=== PATIENT | male | born 1960 | race Caucasian/White ===

== ENCOUNTER 2018-12-12 18:15 | Emergency (ER) | payer SELFPAY ==
[~2018-12-12] VITALS: Ht 167.6 cm; Wt 77.1 kg
[~2018-12-12 18:15] MED LIST: CYCLOBENZAPRINE10 MG PO; Motrin,Rufen800 MG PO
[2018-12-12] MEDS ORDERED: AUGMENTIN 875875 MG PO (18:43)
== END 2018-12-12 20:09 | disposition home or self-care (01) ==
LOC: ED 18:15
DX: S61.451A Open bite of right hand, initial encounter (principal); Z88.6 Allergy status to analgesic agent; Z79.899 Other long term (current) drug therapy; W54.0XXA Bitten by dog, initial encounter; Y93.89 Activity, other specified; Y92.098 Other place in other non-institutional residence as the place of occurrence of the external cause; Y99.8 Other external cause status

== ENCOUNTER 2022-01-15 12:29 | Emergency (ER) | payer OTHER ==
[~2022-01-15] VITALS: Wt 64.0 kg
[~2022-01-15 12:29] MED LIST changes: +AUGMENTIN 875875 MG PO
[2022-01-15 13:12] LABS: HEMATOCRIT 36.2 % (42.0-52.0); MANUAL DIFF REFLEX YES; MEAN CELL VOLUME 85.6 fl (80.0-94.0); MEAN CORPUSCULAR HGB 28.4 pg (27.0-31.0); MEAN CORPUSCULAR HGB CONC 33.1 g/dl (33.0-37.0); MEAN PLATELET VOLUME 8.8 fl (9.6-12.3); PLATELET COUNT AUTOMATED 635 10*3/uL (130-400); RED BLOOD COUNT 4.23 10*6/uL (4.50-5.90); RED CELL DISTRI WIDTH 14.5 % (0-14.5)
[2022-01-15 13:31] LABS: TOTAL CELLS COUNTED 100 #CELLS
[2022-01-15 13:32] LABS: BURR CELLS FEW; PLATELET SUFFICIENCY HIGH (NORMAL); TARGET CELLS FEW; TOXIC GRANULATION SLIGHT; VACUOLATION OF NEUTROPHILS SLIGHT
[2022-01-15 15:20] LABS: ACT PARTIAL THROMBO TIME 33.1 SECONDS (20.0-32.1); INTERNATIONAL NORM RATIO 1.1 (2.0-3.5)
[2022-01-15 15:22] LABS: ALKALINE PHOSPHATASE 71 U/L (46-116); BUN 14 mg/dl (9-23); CHLORIDE 100 mmol/L (98-107); CREATININE 0.67 mg/dL (0.70-1.30); LIPASE 26 U/L (12-53); POTASSIUM 4.5 mmol/L (3.4-5.1); SGPT/ALT 21 U/L (10-49); SODIUM 135 mmol/L (136-145)
[2022-01-15 15:59] LABS: BILIRUBIN Negative (Negative); BLOOD Negative (Negative); CLARITY Clear (Clear); COLOR Yellow (Yellow); GLUCOSE Negative (Negative); KETONE Negative (Negative); LEUKO ESTERASE Negative (Negative); NITRITE Negative (Negative); PH 6.5 (4.5-8.0); SPECIFIC GRAVITY 1.015 (1.001-1.030); UROBILINOGEN 0.2 E.U./dl (0.0-1.0)
[2022-01-15 16:25] LABS: RBC 0-2 rbc/hpf (0-2); WBC 0-2 wbc/hpf (0-5)
[2022-01-15] MEDS ORDERED: Percocet 325 MG1 TAB PO (17:43)
[2022-01-15] MEDS ORDERED: ONDANSETRON4 MG SL (17:43)
== END 2022-01-15 18:05 | disposition home or self-care (01) ==
LOC: ED 12:29
PROVIDERS: Family Medicine
DX: C64.9 Malignant neoplasm of unspecified kidney, except renal pelvis (principal); C79.9 Secondary malignant neoplasm of unspecified site; Z88.6 Allergy status to analgesic agent; Z98.890 Other specified postprocedural states